=== PATIENT | male | born 1975 | race American Indian/Alaskan Native ===

== ENCOUNTER 2017-05-29 02:29 | Emergency (ER) | payer SELFPAY ==
--- NOTE | 2017-05-29 04:31 | Emergency Department Report ---
ED Psych HPI - General Stated Complaint: MH EVAL Time Seen by Provider: 05/29/17 04:24 Source: patient Limitations: Altered Mental Status - History of Present Illness Initial Comments: Patient is a 41-year-old male who presents here for mental health evaluation. Patient states that Gonzalo is coming. He says he does not plan to hurt himself or others but if Gonzalo tells him to he would hurt them. He denies other complaints. Complaint: other (psychosis) -: Gradual History of same: Yes Improves With: medication Associated Symptoms: confusion. denies: headache, shortness of breath, nausea, vomiting, syncope Treatments Prior to Arrival: none - Related Data Home Medications Medication Instructions Recorded Confirmed Last Taken Hydroxyzine HCl [hydrOXYzine] 25 mg PO QDAY 06/10/16 06/10/16 Unknown QUEtiapine [SEROquel] 400 mg PO QDAY 06/10/16 06/10/16 Unknown Venlafaxine HCl [Venlafaxine] 100 mg PO QDAY 06/10/16 06/10/16 Unknown Allergies Allergy/AdvReac Type Severity Reaction Status Date / Time No Known Allergies Allergy Unverified 06/11/16 08:29 ED Review of Systems ROS: Stated complaint: MH EVAL Other details as noted in HPI Comment: Unobtainable due to pts medical conditions Constitutional: no symptoms reported ED Past Medical Hx - Past Medical History Additional medical history: denies - Surgical History Additional Surgical History: denies - Social History Smoking Status: Never Smoker - Medications Home Medications: Home Medications Medication Instructions Recorded Confirmed Last Taken Type Hydroxyzine HCl [hydrOXYzine] 25 mg PO QDAY 06/10/16 06/10/16 Unknown History QUEtiapine [SEROquel] 400 mg PO QDAY 06/10/16 06/10/16 Unknown History Venlafaxine HCl [Venlafaxine] 100 mg PO QDAY 06/10/16 06/10/16 Unknown History ED Physical Exam - General General appearance: alert, anxious, other (rocking back and forth fidgeting in room) - Eye Eye exam: Present: normal appearance, PERRL - Neck Neck exam: Absent: tenderness, meningismus - Respiratory Respiratory exam: Present: normal lung sounds bilaterally, respiratory distress - Cardiovascular Cardiovascular Exam: Present: regular rate, normal rhythm - GI/Abdominal GI/Abdominal exam: Present: soft. Absent: tenderness, guarding - Neurological Exam Neurological exam: Present: alert - Psychiatric Psychiatric exam: Present: agitated, anxious - Skin Skin exam: Present: warm, intact ED Course Vital Signs 05/29/17 02:44 Temperature 97.9 F Pulse Rate 52 L Respiratory 18 Rate Blood Pressure 137/88 [Right] O2 Sat by Pulse 100 Oximetry ED Medical Decision Making - Lab Data Result diagrams: 05/29/17 04:32 05/29/17 04:32 Laboratory Results - last 24 hr 05/29/17 05/29/17 05/29/17 04:32 04:32 04:32 WBC 20.0 H RBC 5.15 H Hgb 15.8 H Hct 46.3 H MCV 90 MCH 31 MCHC 34 RDW 13.3 Plt Count 268 Lymph % (Auto) 6.2 L [place] % (Auto) 5.5 Eos % (Auto) 0.0 Baso % (Auto) 0.3 Lymph # 1.2 [place] # 1.1 H Eos # 0.0 Baso # 0.1 Seg Neutrophils % 88.0 H Seg Neutrophils # 17.6 H Sodium 140 Potassium 4.2 Chloride 100.3 Carbon Dioxide 29 Anion Gap 15 BUN 18 Creatinine 1.1 Estimated GFR > 60 BUN/Creatinine Ratio 16.36 Glucose 127 H Calcium 9.6 Total Bilirubin 0.50 AST 16 ALT 19 Alkaline Phosphatase 75 Total Protein 7.6 Albumin 4.4 Albumin/Globulin Ratio 1.4 Salicylates < 0.3 L Acetaminophen Plasma/Serum Alcohol 05/29/17 05/29/17 04:32 04:32 WBC RBC Hgb Hct MCV MCH MCHC RDW Plt Count Lymph % (Auto) [place] % (Auto) Eos % (Auto) Baso % (Auto) Lymph # [place] # Eos # Baso # Seg Neutrophils % Seg Neutrophils # Sodium Potassium Chloride Carbon Dioxide Anion Gap BUN Creatinine Estimated GFR BUN/Creatinine Ratio Glucose Calcium Total Bilirubin AST ALT Alkaline Phosphatase Total Protein Albumin Albumin/Globulin Ratio Salicylates Acetaminophen < 15.0 Plasma/Serum Alcohol < 0.01 - Medical Decision Making Patient is to be 1013. Plan to do basic labs and will reassess. Critical care attestation.: If time is entered above; I have spent that time in minutes in the direct care of this critically ill patient, excluding procedure time. ED Disposition Clinical Impression: Manic episode Disposition: DC/TX-65 PSY HOSP/PSY UNIT Is pt being admited?: No Condition: Stable Referrals: PRIMARY CARE, [Primary Care Provider] - 3-5 Days
[2017-05-29 05:13] LABS: Alanine Aminotransferase 19 units/L (7-56); Albumin 4.4 g/dL (3.9-5); Albumin/Globulin Ratio 1.4 %; Alkaline Phosphatase 75 units/L (35-129); Anion Gap 15 mmol/L; BUN/Creatinine Ratio 16.36; Basophils % (Auto) 0.3 % (0.0-1.8); Blood Urea Nitrogen 18 mg/dL (9-20); Calcium 9.6 mg/dL (8.4-10.2); Carbon Dioxide 29 mmol/L (22-30); Chloride 100.3 mmol/L (98-107); Glucose 127 mg/dL (75-100); Hematocrit 46.3 % (35.5-45.6); Hemoglobin 15.8 gm/dl (11.8-15.2); Mean Corpuscular HGB Conc 34 % (32-34); Mean Corpuscular Hemoglobin 31 pg (28-32); Mean Corpuscular Volume 90 fl (84-94); Platelet Count 268 K/mm3 (140-440); Potassium 4.2 mmol/L (3.6-5.0); Red Blood Count 5.15 M/mm3 (3.65-5.03); Red Cell Distribution Width 13.3 % (13.2-15.2); Sodium 140 mmol/L (137-145); Total Protein 7.6 g/dL (6.3-8.2)
[2017-05-29 06:51] LABS: Urine Drugs of Abuse Note Disclamer
[2017-05-29 07:05] LABS: Bilirubin,Urine NEG (Negative); Blood,Urine NEG (Negative); Ketones,Urine TR mg/dL (Negative); Leukocyte Esterase,Urine NEG (Negative); Mucus,Urine FEW /HPF; Nitrite,Urine NEG (Negative); Protein,Urine <15 mg/dL mg/dL (Negative); Urobilinogen,Urine < 2.0 mg/dL (<2.0)
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
[2017-05-29] MEDS: COGENTIN PO SCH (22:42)
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
[2017-05-30] MEDS: COGENTIN PO SCH (21:57)
[2017-05-31 09:13] VITALS: BP 128/88
== END 2017-05-31 09:15 ==
LOC: EEVIPCON 02:29 → ED 02:29
DX: F30.9 Manic episode, unspecified (principal)
CPT/HCPCS: 36415; 80053; 80307; 81001; 85025; 99285; G0480; 80320

== ENCOUNTER 2020-07-20 18:26 | Emergency (ER) | payer SELFPAY ==
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
[2020-07-20 20:03] LABS: Basophils # (Auto) 0.1 K/mm3 (0.0-0.1); Basophils % (Auto) 0.9 % (0.0-1.8); Hematocrit 49.9 % (35.5-45.6); Hemoglobin 17.3 gm/dl (11.8-15.2); Lymphocytes # (Auto) 1.3 K/mm3 (1.2-5.4); Lymphocytes % (Auto) 7.8 % (13.4-35.0); Mean Corpuscular HGB Conc 35 % (32-34); Mean Corpuscular Volume 91 fl (84-94); Monocytes # (Auto) 0.8 K/mm3 (0.0-0.8); Monocytes % (Auto) 5.1 % (0.0-7.3); Platelet Count 383 K/mm3 (140-440); Red Blood Count 5.46 M/mm3 (3.65-5.03); Red Cell Distribution Width 13.2 % (13.2-15.2)
[2020-07-20 20:27] LABS: Alanine Aminotransferase 18 units/L (7-56); Albumin 4.4 g/dL (3.9-5); BUN/Creatinine Ratio 18; Blood Urea Nitrogen 18 mg/dL (9-20); Calcium 9.9 mg/dL (8.4-10.2); Hemolysis Index 34
[2020-07-20] MEDS ORDERED: SODIUM CHLORIDE 0.9% 1000 ML 1,000 ML IV ONE ×2 (22:06→22:45)
--- NOTE | 2020-07-20 22:42 | XRay Report ---
CHEST 1 VIEW, 07/20/2020 9:33 PM CLINICAL INFORMATION/INDICATION: Shortness of breath COMPARISON: None FINDINGS: SUPPORT DEVICES: None. HEART: The cardiac silhouette is normal in size. LUNGS/PLEURA: The lungs are clear of focal airspace disease or significant pleural effusion. ADDITIONAL FINDINGS: No additional acute findings. IMPRESSION: 1. No evidence of acute cardiopulmonary process. Signer Name: Magnolia Chavez MD Signed: 07/20/2020 10:38 PM Workstation Name: [id number]
[2020-07-21] MEDS ORDERED: ZIPRASIDONE MESYLATE 20 MG VIAL IM STA (00:58)
[2020-07-21] MEDS ORDERED: ZIPRASIDONE MESYLATE 20 MG VIAL IM ONE (01:00)
[2020-07-21] MEDS ORDERED: WATER FOR INJ Sterile (PF) 10 ML ONE (01:01)
[2020-07-21] MEDS ORDERED: HALOPERIDOL LACTATE 5 MG/1 ML INJ IM PRN (01:17)
[2020-07-21] MEDS ORDERED: MAGNESIUM HYDROXIDE (MOM) ORAL LIQD UDC PO PRN (01:17)
[2020-07-21] MEDS ORDERED: ALUM-MAG HYDROXIDE-SIMETHICONE 200-200-20MG/5ML ORAL LIQD 30 ML PO PRN (01:17)
[2020-07-21] MEDS ORDERED: ACETAMINOPHEN 325 MG TAB PO PRN (01:17)
[2020-07-21] MEDS ORDERED: LORazepam 2 MG/ML VIAL IM PRN (01:19)
[2020-07-21 02:15] LABS: Amphetamine Screen,Urine PRESUMPTIVE NEGATIVE; Benzodiazepines Screen,Urine PRESUMPTIVE NEGATIVE; Cannabinoid Screen,Urine PRESUMPTIVE NEGATIVE; Cocaine Screen,Urine PRESUMPTIVE NEGATIVE; Methadone Screen,Urine PRESUMPTIVE NEGATIVE; Opiate Screen,Urine PRESUMPTIVE NEGATIVE
[2020-07-21 02:35] LABS: Bilirubin,Urine SM (Negative); Blood,Urine NEG (Negative); Color,Urine Amber (Yellow); Mucus,Urine 3+ /HPF
[2020-07-21 03:00] LABS: Ictotest,Urine Negative (Negative)
[2020-07-21 11:14] LABS: Hematocrit 40.9 % (35.5-45.6); Hemoglobin 14.7 gm/dl (11.8-15.2); Mean Corpuscular HGB Conc 36 % (32-34); Mean Corpuscular Volume 91 fl (84-94); Platelet Count 279 K/mm3 (140-440); Red Cell Distribution Width 13.3 % (13.2-15.2)
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
[2020-07-21] MEDS: QUEtiapine 25 MG TAB PO SCH ×2 (12:37→22:00)
[2020-07-21] MEDS: hydrOXYzine PAMOATE 25 MG CAP PO SCH ×2 (12:37→22:00)
[2020-07-21] MEDS ORDERED: POTASSIUM CHLORIDE ER 10 MEQ TAB PO ONE (18:33)
[2020-07-21] MEDS: NITROFURANTOIN MONOHYD/M-CRYST 100 MG CAP PO SCH (22:00)
[2020-07-21] MEDS: traZODone 50 MG TAB PO SCH (22:00)
[2020-07-21] MEDS ORDERED: POTASSIUM CHLORIDE ER 20 MEQ TAB PO ONE (22:41)
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
[2020-07-22] MEDS: QUEtiapine 100 MG TAB PO SCH ×2 (11:00→23:18)
[2020-07-22] MEDS: NITROFURANTOIN MONOHYD/M-CRYST 100 MG CAP PO SCH ×2 (11:00→23:17)
[2020-07-22] MEDS: hydrOXYzine PAMOATE 25 MG CAP PO SCH ×2 (11:00→23:17)
[2020-07-22] MEDS: SERTRALINE 25 MG TAB PO SCH (11:05)
[2020-07-22] MEDS: traZODone 50 MG TAB PO SCH (23:17)
--- NOTE | 2020-07-23 10:37 | Progress Note ---
Subjective - Reason for Consult Consult date: 07/23/20 Reason for consult: psychosis - Chief Complaint Chief complaint: The patient's medical record was reviewed and the patient's progress was discussed with the nursing staff. During my interview with the patient, today he is sitting up watching t.v. He is a little more calm today. The patient is a/o x 3. He is hallucinating and delusional. He is smiling. The patient verbalizes feeling "tense and nervous." He says "I see duplicates of myself." The patient then whispers, "but I'm the real." He says, "I don't want no one panicked because of what my duplicates might do." He denies SI/HI. The patient says he slept "pretty good." REVIEW OF SYSTEMS Constitutional: Negative for weight loss ENT: Negative for stridor Respiratory: Negative for cough or hemoptysis All other systems reviewed and are negative MENTAL STATUS EXAMINATION General Appearance: Dressed appropriately Behavior: suspicious, anxious, cooperative Mood: "tense and nervous" Affect and affective range: Congruent with stated mood Speech: Normal volume, Regular rate and rhythm Thought Process: Goal directed Thought Content: Suicidal Ideation: Denies Homicidal Ideation: Denies Hallucinations: A/V Delusions: Yes, Paranoia, delusional Insight and Judgment: Limited Memory/Cognition: Normal Attention: Normal Assessment 1. Schizoaffective Disorder 2. Generalized Anxiety Disorder TREATMENT PLAN Continue current regimen Risks, benefits and alternatives of medications discussed with the patient, questions answered and consent obtained from patient. PSYCHOTHERAPY: Supportive psychotherapy provided MEDICAL: Per primary team DELIRIUM PRECAUTIONS: Please re-orient patient frequently, keep lights on during the day, and minimize benzodiazepines and opiates as these medications could worsen patient's confusion. 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 Please contact with any questions and/or concerns. Mental Status Exam - Vital signs Last Vital Signs Temp 97.5 F L 07/23/20 08:46 Pulse 72 07/23/20 08:46 Resp 18 07/23/20 08:46 BP 121/67 07/23/20 08:46 Pulse Ox 99 07/23/20 08:46
[2020-07-23] MEDS: hydrOXYzine PAMOATE 25 MG CAP PO SCH ×2 (11:10→21:19)
[2020-07-23] MEDS: QUEtiapine 100 MG TAB PO SCH ×2 (11:11→21:19)
[2020-07-23] MEDS: SERTRALINE 25 MG TAB PO SCH (11:11)
[2020-07-23] MEDS: NITROFURANTOIN MONOHYD/M-CRYST 100 MG CAP PO SCH ×2 (11:11→21:19)
[2020-07-23 13:15] LABS: Basophils # (Auto) 0.1 K/mm3 (0.0-0.1); Basophils % (Auto) 0.8 % (0.0-1.8); Eosinophils # (Auto) 0.2 K/mm3 (0.0-0.4); Eosinophils % (Auto) 2.3 % (0.0-4.3); Hematocrit 45.6 % (35.5-45.6); Hemoglobin 15.5 gm/dl (11.8-15.2); Lymphocytes # (Auto) 1.5 K/mm3 (1.2-5.4); Lymphocytes % (Auto) 20.6 % (13.4-35.0); Mean Corpuscular HGB Conc 34 % (32-34); Mean Corpuscular Volume 94 fl (84-94); Monocytes # (Auto) 0.5 K/mm3 (0.0-0.8); Monocytes % (Auto) 6.8 % (0.0-7.3); Platelet Count 278 K/mm3 (140-440); Red Blood Count 4.87 M/mm3 (3.65-5.03); Red Cell Distribution Width 13.4 % (13.2-15.2)
[2020-07-23 13:30] LABS: BUN/Creatinine Ratio 23; Blood Urea Nitrogen 18 mg/dL (9-20); Calcium 9.4 mg/dL (8.4-10.2); Hemolysis Index 28
[2020-07-23] MEDS: traZODone 50 MG TAB PO SCH (21:19)
[2020-07-24] MEDS: traZODone 50 MG TAB PO SCH ×3 (07:06→22:44)
[2020-07-24] MEDS: NITROFURANTOIN MONOHYD/M-CRYST 100 MG CAP PO SCH ×4 (07:07→22:45)
[2020-07-24] MEDS: QUEtiapine 100 MG TAB PO SCH ×2 (07:07→10:09)
[2020-07-24] MEDS: hydrOXYzine PAMOATE 25 MG CAP PO SCH ×2 (07:07→10:08)
[2020-07-24] MEDS: SERTRALINE 25 MG TAB PO SCH (10:09)
--- NOTE | 2020-07-24 12:28 | Progress Note ---
Subjective - Reason for Consult Consult date: 07/24/20 Reason for consult: psychosis - Chief Complaint Chief complaint: The patient's medical record was reviewed and the patient's progress was discussed with the nursing staff. During my interview with the patient, today he is sitting up watching t.v. He is a/o x 3. He says he feels "better." His behavior is odd. He is cooperative. He smiles inappropriately. The patient is having visual hallucinations. He's also suspicious. The patient initially denies hallucinations, but then states, "can I tell you later." He then becomes quiet and start cutting his eyes. He says, "the little boys are standing by you." When asking him what are the little boys doing, he says, "nothing. They are there but they don't have to be." He denies SI/HI. REVIEW OF SYSTEMS Constitutional: Negative for weight loss ENT: Negative for stridor Respiratory: Negative for cough or hemoptysis All other systems reviewed and are negative MENTAL STATUS EXAMINATION General Appearance: Dressed appropriately Behavior: suspicious, odd, cooperative Mood: "better" Affect and affective range: Congruent with stated mood Speech: Normal volume, Regular rate and rhythm Thought Process: Goal directed Thought Content: Suicidal Ideation: Denies Homicidal Ideation: Denies Hallucinations: Auditory Delusions: Yes, Paranoia, delusional Insight and Judgment: Limited Memory/Cognition: Normal Attention: Normal Assessment 1. Schizoaffective Disorder 2. Generalized Anxiety Disorder TREATMENT PLAN Increase Seroquel 200mg po BID Start Klonopin 0.25mg po BID Change Vistaril 25mg po BID prn anxiety Risks, benefits and alternatives of medications discussed with the patient, questions answered and consent obtained from patient. PSYCHOTHERAPY: Supportive psychotherapy provided MEDICAL: Per primary team DELIRIUM PRECAUTIONS: Please re-orient patient frequently, keep lights on during the day, and minimize benzodiazepines and opiates as these medications could worsen patient's confusion. 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 Please contact with any questions and/or concerns. Mental Status Exam - Vital signs Last Vital Signs Temp 98.6 F 07/24/20 08:55 Pulse 66 07/24/20 08:55 Resp 18 07/24/20 08:55 BP 100/59 07/24/20 08:55 Pulse Ox 98 07/24/20 08:55
[2020-07-24] MEDS ORDERED: hydrOXYzine PAMOATE 25 MG CAP PO PRN (12:29)
[2020-07-24] MEDS: clonazePAM 0.5 MG TAB PO SCH ×3 (13:05→22:44)
[2020-07-24] MEDS: QUEtiapine 200 MG TAB PO SCH ×2 (21:01→22:45)
[2020-07-25 08:04] VITALS: BP 105/63
== END 2020-07-25 08:15 | disposition admitted as inpatient to this hospital (09) ==
LOC: ED 18:26 → EEVIPCON 18:26 → ED 07-25 08:15
DX: F23 Brief psychotic disorder (principal); F25.0 Schizoaffective disorder, bipolar type; F41.9 Anxiety disorder, unspecified; Z79.899 Other long term (current) drug therapy
CPT/HCPCS: 36415; 71045; 80048; 80053; 80307; 81001; 85025; 85027; 87040; 87086; 96360; 96361; 96372; 99285; J1630; J2060; J3486; J7030; 80320; G0480; Q0177